=== PATIENT | female | born 1995 | race Caucasian/White ===

== ENCOUNTER 2019-10-19 16:15 | Emergency (ER) | payer BC ==
[~2019-10-19] VITALS: Ht 160 cm; Wt 55.0 kg
[2019-10-19 16:30] VITALS: BP 104/67
== END 2019-10-19 23:39 | disposition left against medical advice (07) ==
LOC: ER 16:15
DX: R51 Headache (principal); R11.0 Nausea; M54.9 Dorsalgia, unspecified; Z53.21 Procedure and treatment not carried out due to patient leaving prior to being seen by health care provider

== ENCOUNTER 2020-02-13 13:25 | Observation (INO) | payer BC, MEDICAID ==
[~2020-02-13] VITALS: Ht 160 cm; Wt 54.4 kg
[2020-02-13] MEDS ORDERED: PNV1TABL MT (14:28)
== END 2020-02-13 14:53 | disposition home or self-care (01) ==
LOC: 8 EST LDRP 13:25
PROVIDERS: ADMIT Obstetrics & Gynecology; ATTEND Obstetrics & Gynecology
DX: O44.12 Complete placenta previa with hemorrhage, second trimester (principal); Z3A.23 23 weeks gestation of pregnancy
CPT/HCPCS: 99281; G0378

== ENCOUNTER 2020-03-13 00:12 | Emergency (ER) | payer BC, MEDICAID ==
[~2020-03-13] VITALS: Ht 160 cm; Wt 57.0 kg
[~2020-03-13 00:12] MED LIST: PNV1TABL MT
[2020-03-13 00:49] LABS: BASOPHILS % 0.5 % (0.0-2.0); EOSINOPHILS % 1.3 % (0.0-5.0); HEMATOCRIT. 34.8 % (36.0-48.0); HEMOGLOBIN. 12.3 g/dL (12.0-16.0); LYMPHOCYTES % 22.2 % (20.0-50.0); MEAN CORPUSCULAR HEMOGLOBIN 30.4 pg (28.0-32.0); MEAN CORPUSCULAR VOLUME 86.4 fL (81.0-99.0); MEAN PLATELET VOLUME 8.5 fl (7.4-10.4); MONOCYTES % 9.1 % (2.0-8.0); NEUTROPHILS % 66.9 % (40.0-76.0); PLATELET 208 x1000/uL (130-400); RED BLOOD CELL COUNT 4.03 mill/uL (4.2-5.4); RED CELL DISTRIBUTION WIDTH 13.9 % (11.6-14.6)
[2020-03-13 00:57] LABS: CHLORIDE 108 mEq/L (98-107); INR 0.9; PROTHROMBIN TIME 10.2 sec (9.6-11.0)
[2020-03-13 01:36] LABS: CLARITY URINE CLEAR (CLEAR); COLOR URINE YELLOW (YELLOW); KETONES URINE NEGATIVE (NEGATIVE); LEUKOCYTE ESTERASE URINE TRACE (NEGATIVE); NITRITE URINE NEGATIVE (NEGATIVE); OCCULT BLOOD URINE 1+ (NEGATIVE); PROTEIN URINE NEGATIVE (NEGATIVE); SPECIFIC GRAVITY URINE 1.022 (1.005-1.030); UROBILINOGEN URINE 0.2 E.U./dL (0.2-1.0)
[2020-03-13 02:37] VITALS: BP 121/67
== END 2020-03-13 02:41 | disposition home or self-care (01) ==
LOC: ER 00:12
DX: O26.892 Other specified pregnancy related conditions, second trimester (principal); R06.00 Dyspnea, unspecified; Z3A.27 27 weeks gestation of pregnancy; Z88.0 Allergy status to penicillin
CPT/HCPCS: 36415; 71045; 76815; 80053; 81003; 85025; 93005; 99285